=== PATIENT | female | born 1960 | race Hispanic/Latino ===

== ENCOUNTER → 2018-07-23 07:41 | Outpatient (CLI) | payer OTHER, SELFPAY ==
--- NOTE | 2018-07-23 | DI.MG.S_ITS ---
BILATERAL DIGITAL SCREENING MAMMOGRAM 3D/2D WITH CAD: 07/23/2018 CLINICAL: Routine screening. Comparison is made to exams dated: 06/01/2017 mammogram, 05/29/2016 mammogram, and 05/23/2015 mammogram - [facility]. The tissue of both breasts is heterogeneously dense. This may lower the sensitivity of mammography. Current study was also evaluated with a Computer Aided Detection (CAD) system. There are a grouped calcifications in the left breast at 2 o'clock middle depth. No other significant masses, calcifications, or other findings are seen in either breast. IMPRESSION: INCOMPLETE: NEEDS ADDITIONAL IMAGING EVALUATION The grouped calcifications in the left breast are indeterminate. Spot magnification views are recommended. This exam was interpreted at Station ID: [id number]. NOTE: For mammograms, a report in lay terms will be sent to the patient. Approximately 15% of breast malignancies will not be visualized mammographically. In the management of a palpable breast mass, a negative mammogram must not discourage biopsy of a clinically suspicious lesion. Electronically Signed By: Mirella enriquez/james:07/25/2018 11:24:02 letter sent: Additional Imaging Needed ACR BI-RADS Category 0: Incomplete 3340F
== END ==
PROVIDERS: PCP Family Medicine; Visit Provider Family Medicine
DX: Z12.31 Encounter for screening mammogram for malignant neoplasm of breast (principal)
CPT/HCPCS: 77063; 77067

== ENCOUNTER → 2018-08-22 10:22 | Outpatient (CLI) | payer OTHER, SELFPAY ==
--- NOTE | 2018-08-22 | DI.MG.S_ITS ---
UNILATERAL LEFT DIGITAL DIAGNOSTIC MAMMOGRAM 3D/2D WITH ADDITIONAL VIEWS: 08/22/2018 CLINICAL: Additional evaluation requested from prior study. Comparison is made to exams dated: 07/23/2018 mammogram, 06/09/2017 mammogram, and 06/01/2017 mammogram - [facility]. The tissue of left breast is heterogeneously dense. This may lower the sensitivity of mammography. There are a grouped calcifications in the left breast at 1 o'clock middle depth. These are seen in additional views. No other significant masses or calcifications are seen in the breast. IMPRESSION: SUSPICIOUS OF MALIGNANCY The grouped calcifications in the left breast are at an intermediate suspicion for malignancy. A stereotactic biopsy is recommended. This exam was interpreted at Station ID: [id number]. NOTE: For mammograms, a report in lay terms will be sent to the patient. Approximately 15% of breast malignancies will not be visualized mammographically. In the management of a palpable breast mass, a negative mammogram must not discourage biopsy of a clinically suspicious lesion. SUMMARY: This was discussed with the patient by the radiologist, Dr. Caruso at the time of the exam. Electronically Signed By: Mirella Rosales M.D. lk/:08/22/2018 10:54:23 copy to: Tish Terry letter sent: Biopsy Required ACR BI-RADS Category 4b: Suspicious abnormality - intermediate suspicion of malignancy 3344F
== END ==
PROVIDERS: PCP Family Medicine; Visit Provider Family Medicine
DX: R92.1 Mammographic calcification found on diagnostic imaging of breast (principal)
CPT/HCPCS: 77065; G0279

== ENCOUNTER → 2019-08-11 12:48 | Outpatient (CLI) | payer OTHER, SELFPAY ==
--- NOTE | 2019-08-11 | DI.MG.S_ITS ---
BILATERAL DIGITAL SCREENING MAMMOGRAM 3D/2D WITH CAD: 08/11/2019 CLINICAL: Routine screening. Family history of breast cancer. Comparison is made to exams dated: 07/23/2018 mammogram, 06/01/2017 mammogram, 05/29/2016 mammogram, 08/22/2018 mammogram - [facility], and 08/29/2018 specimen - [facility]. The tissue of both breasts is heterogeneously dense. This may lower the sensitivity of mammography. Current study was also evaluated with a Computer Aided Detection (CAD) system. There are benign post operative findings in both breasts. No significant masses, calcifications, or other findings are seen in either breast. There has been no significant interval change. IMPRESSION: There is no mammographic evidence of malignancy. A 1 year screening mammogram is recommended. This exam was interpreted at Station ID: [id number]. NOTE: For mammograms, a report in lay terms will be sent to the patient. Approximately 15% of breast malignancies will not be visualized mammographically. In the management of a palpable breast mass, a negative mammogram must not discourage biopsy of a clinically suspicious lesion. Electronically Signed By: Magan lyle/james:08/11/2019 14:35:36 copy to: Tish Terry letter sent: Normal Exam ACR BI-RADS Category 2: Benign Finding(s) 3342F
== END ==
PROVIDERS: PCP Family Medicine; Visit Provider Family Medicine
DX: Z12.31 Encounter for screening mammogram for malignant neoplasm of breast (principal); Z80.3 Family history of malignant neoplasm of breast
CPT/HCPCS: 77063; 77067

== ENCOUNTER → 2020-04-26 15:25 | Outpatient (CLI) | payer OTHER, SELFPAY ==
--- NOTE | 2020-04-26 15:27 | DI.RAD.S_ITS ---
PROCEDURE: XR SHOULDER LT MIN 2V INDICATIONS: Shoulder pain TECHNIQUE: Three views of the shoulder were acquired. COMPARISON: None. FINDINGS: Bones: No fractures or dislocations. No suspicious bony lesions. Visualized ribs appear intact. Soft tissues: No suspicious soft tissue calcifications. IMPRESSION: No acute finding. Dictated by: Lukasz Paulino M.D. on 04/26/2020 at 15:54 Approved by: Lukasz Paulino M.D. on 04/26/2020 at 15:54
== END ==
PROVIDERS: PCP Family Medicine; Referring Provider Nurse Practitioner; Visit Provider Nurse Practitioner
DX: M25.512 Pain in left shoulder (principal)
CPT/HCPCS: 73030

== ENCOUNTER → 2020-07-16 09:26 | Outpatient (CLI) | payer OTHER, SELFPAY ==
[2020-07-17 14:21] LABS: COVID19 Sendout Not Detected (Not Detect)
== END ==
PROVIDERS: PCP Family Medicine; Visit Provider Physician Assistant
DX: Z11.59 Encounter for screening for other viral diseases (principal)
CPT/HCPCS: 87635

== ENCOUNTER 2020-07-19 13:54 | Day surgery (SDC) | payer OTHER, SELFPAY ==
[2020-07-19] VITALS (7 sets, daily range): BP systolic 119–142; BP diastolic 64–88; PULSE 51–76; RESP 11–22; TEMP 36–36.5; O2SAT 99–100; BMI 31.9
--- NOTE | 2020-07-19 | PATH_ITS ---
[facility] Accession Number: [id number] . 01 Material submitted: . sigmoid colon - SIGMOID POLYP 2MM . 02 Diagnosis: Sigmoid Colon, Polyp 2 mm, Biopsy: Tubular adenoma. MRV 07/23/2020 1244 Local . 02 Electronically signed: . Madisyn Begum MD, Pathologist NPI- [id number] . 01 Gross description: . SIGMOID POLYP 2MM: Received in formalin is 1 fragment(s) of walker, soft tissue measuring 0.3 x 0.3 x 0.3 cm submitted entirely in 1 cassette(s) /QBJ 07/20/2020 0804 Local . 02 Pathologist provided ICD-10: D12.5 . 02 CPT . 309997 Specimen Comment: A duplicate report has been generated due to demographic updates. Performed at: 01 [facility] [address] [id number] MD Sb Dominguez MD Phone: [phone] Performed at: 02 [facility] [address] [place] [id number] MD Madisyn Begum MD Phone: [phone]
--- NOTE | 2020-07-19 11:11 | PM.HP.1 ---
History of Present Illness History of Present Illness Date Patient Seen: 07/19/20 Chief complaint: [facility] Narrative: 60 Years Old Female seen today for consideration of a screening colonoscopy. Has had 3 previous colonoscopies. Cannot remember the date of the first colonoscopy but she did have colon polyps reportedly, results unavailable at time of dictation. The last 2 were in 2011 and 2015. The 2012 colonoscopy was indicated for a strong family history of colon cancer and history of polyps, normal. The 2016 colonoscopy was indicated for the same; also normal but did show some diverticular change on the left side as well tortuosity. There have been no lower GI symptoms suggesting disease such as change in bowel habits, bleeding, abdominal pain or anemia. Strong family history of colon cancer in her mother, 2 maternal aunts, and brother. Per patient, genetic testing has been refused by those family members. Overall health issues have been stable, including no major cardiac events for at least 6 weeks. Current Medications: 1) Atorvastatin Calcium 40 Mg Oral Tablet (Atorvastatin Calcium) .... Take 2 tablet by mouth daily for cholesterol control. 2) Fluoxetine Hcl 20 Mg Oral Capsule (Fluoxetine Hcl) .... Take 2 capsule by mouth once a day 3) Wellbutrin Sr 100 Mg Oral Tablet Extended Release 12 Hour (Bupropion Hcl) .... Take one by mouth twice a day 4) Estradiol 1 Mg Oral Tablet (Estradiol) .... Take one tablet by mouth every day for hormone replacement. 5) Acyclovir 400 Mg Oral Tablet (Acyclovir) .... Take one by mouth twice a day 6) Flonase 50 Mcg/act Nasal Suspension (Fluticasone Propionate) .... Take one by mouth every day 7) Singulair 10 Mg Oral Tablet (Montelukast Sodium) .... Take one by mouth every day Allergies: 1) Ceftin (Critical) 2) Penicillin (Critical) 3) Sulfa (Critical) 4) Tetracycline (Critical) 5) Macrodantin (Critical) 6) Flu Vaccine (Critical) 7) * Histamine Releasing Drugs (Critical) 8) Asa (Moderate) Past Medical History: Abnormal Pap - severe dysplasia (1987) MAUREEN I + II History of colon polyps Diverticulosis of colon Mammographic calcification of breast Large breasts OBESITY (BMI <40) PAIN, LOW BACK W/SCIATICA Breast asymmetry URINARY INCONTINENCE, STRESS, FEMALE DEPRESSION, MAJOR, RECURRENT HYPERLIPIDEMIA RAYNAUD'S SYNDROME ARTHRITIS HERPES SIMPLEX, ANY SITE Past Surgical History: Hysterectomy (1987) - right ovary removed Abdmoinal wall repair (08/1999) Cholecystectomy (1997) with susequent diarrhea 12/24/15 Dr. Halima Connors retro pubic sling for stress incontinence Colonoscopy x3, diverticulosis Bilateral breast reduction Family History: Father: Mother: colon cancerBreast Cancer, Heart Disease, Depression, Hyperlipidemia, Osteoporosis Siblings: Alcohol, Depression Brother: colon cancer Maternal aunts: colon cancer Social History: Reviewed history from 08/30/2019 and no changes required: Marital Status: - [employer] (1954) - [employer] Occupation: [employer] Personality Education: Associates degree Meds Home Medications and Allergies Home Medications Medication Instructions Recorded Confirmed Type acyclovir 80 mg PO BID 04/26/20 07/19/20 History bupropion HCl 150 mg PO BID 04/26/20 07/19/20 History estradiol PO 04/26/20 04/26/20 History fluoxetine 40 mg capsule 40 mg PO DAILY 04/26/20 07/19/20 History montelukast 10 mg tablet 10 mg PO DAILY 04/26/20 07/19/20 History rosuvastatin 20 mg tablet 20 mg PO DAILY 04/26/20 07/19/20 History Allergies Allergy/AdvReac Type Severity Reaction Status Date / Time Influenza Virus Vaccines Allergy Intermediate Verified 07/19/20 14:43 Histamine H2 Inhibitors Allergy Anaphylaxis Verified 07/19/20 14:26 nitrofurantoin Allergy rash Verified 07/19/20 14:26 [From Macrodantin] Penicillins Allergy Verified 07/19/20 14:26 Sulfa (Sulfonamide Allergy rash Verified 07/19/20 14:26 Antibiotics) Tetracyclines Allergy Rash Verified 07/19/20 14:26 aspirin AdvReac Vomiting Verified 07/19/20 14:26 Review of Systems Review of Systems ROS: Yes All systems reviewed with the patient and are negative except as otherwise documented Exam Narrative Exam Narrative: GENERAL: Alert and oriented, appearing stated age and in no acute distress. HEENT: Head normocephalic/atraumatic. Pupils equal, round, and reactive to light and accomodation. Extraocular muscles intact. Tympanic membranes clear. Nasal mucosa moist, septum midline. Oral mucosa moist, no lesions. Neck soft and supple, no lymphadenopathy. LUNGS: Clear to ausculation bilaterally, no wheezes, rhonchi or rales. CV: Normal S1 and S2 with regular rate and rhythm, no audible murmurs, rubs or gallops. ABDOMEN: Soft, non-tender, non-distended, no organomegaly. Positive bowel sounds. EXTREMITIES: No clubbing, cyanosis, or edema. NEURO: Cranial nerves II through XII grossly intact, no focal deficits. PSYCH: Alert and oriented x 3. SKIN: No concerning lesions. Assessment & Plan Assessment & Plan narrative: 1. Family history of colon cancer 2. History of colon polyps 3. Diverticulosis of Colon 4. Screening for colon cancer Plan for colonoscopy. The nature and character of the procedure as well as anticipated results were discussed. The possibility of not completing the procedure was also discussed. Possible complications including aspiration pneumonia, bleeding, perforation and reaction to medications either for sedation or preparation and missed lesions were discussed. Questions were answered and proceeding to the colonoscopy was elected. Informed consent signed. I sincerely appreciate the referral allowing me to participate in this patient's care. Please contact me with any questions or concerns.
--- NOTE | 2020-07-19 11:13 | PM.OP.ENDO ---
Operative Date/Time/Diagnoses Date of procedure: 07/19/20 Procedure Notes SCOAP/Timeout: 3:06 p.m. Procedure in detail: ENDOSCOPIST: Shana Osorio MD Sedation RN: David Newton RN Sedation start time: 3:07 p.m. Sedation end time: 3:30 p.m. PROCEDURE: Colonoscopy with cold biopsy INDICATIONS: 1. Family history of colon cancer 2. History of colon polyps 3. Diverticulosis of colon 4. Screening for colon cancer MEDICATION: Levsin 0.125 mg sublingual, incremental doses of Versed and fentanyl until appropriate level sedation achieved. ASA CLASS: 2 CECAL WITHDRAWAL TIME: 10 minutes COMPLICATIONS: None. EXTENT OF PROCEDURE: Cecum. QUALITY OF PREP: Good with portions of liquid stool. PROCEDURE: Prior to insertion of the colonoscope, a digital rectal examination was accomplished with circumferential palpation of the distal rectal mucosa without significant findings being noted. The high-definition pediatric colonoscope was passed into the rectum in the usual fashion and advanced over to the cecum without difficulty. The ileocecal valve, appendiceal stoma, and medial wall all could be inspected and no abnormalities were seen. ASCENDING COLON: As the colonoscope was withdrawn, care was taken to expose and inspect the haustral folds and no abnormalities were seen. HEPATIC FLEXURE: Normal, no polyps, diverticula or other abnormalities. TRANSVERSE COLON: Normal, no polyps, diverticula or other abnormalities. DESCENDING COLON: Normal, no polyps, diverticula or other abnormalities. SIGMOID COLON: Minor diverticulosis, HGB 9 polyp was seen and removed with cold biopsy forceps. Otherwise, no abnormalities. RECTUM: Normal. J maneuver was produced. There was no significant perianal disease. The J maneuver was broken. The remainder of the rectum was inspected and there was no external hemorrhoid disease. The scope was withdrawn. IMPRESSION: 1. Sigmoid polyp x1, 2 mm, removed with cold biopsy forceps 2. Sigmoid diverticulosis, mild PLAN: 1. Follow-up in clinic status post pathology results. The possibility of a missed lesion including a malignancy has been discussed with the patient previously. Potential alarm symptoms have been discussed and should be reported immediately.
[2020-07-19] MEDS: HYOSCYAMINE 0.125 MG TABLET PO (14:34)
[2020-07-19] MEDS: LACTATED RINGERS 1,000 ML 200 ML IV (14:35)
[2020-07-19] MEDS: MIDAZOLAM 5 MG/5 ML VIAL IV (15:10)
[2020-07-19] MEDS: fentaNYL 250 MCG/5 ML INJ IV (15:19)
== END 2020-07-19 16:24 | disposition home or self-care (01) ==
PROVIDERS: PCP Family Medicine; Referring Provider Family Medicine; Visit Provider Student in an Organized Health Care Education/Training Program
PROC: 0DJD8ZZ Inspection of Lower Intestinal Tract, Via Natural or Artificial Opening Endoscopic (ICD-10-PCS; CPT 45378; principal; 2020-07-19 15:15)
DX: Z12.11 Encounter for screening for malignant neoplasm of colon (principal); Z86.010 Personal history of colon polyps; Z80.0 Family history of malignant neoplasm of digestive organs; K57.30 Diverticulosis of large intestine without perforation or abscess without bleeding; D12.5 Benign neoplasm of sigmoid colon
CPT/HCPCS: 45380; J2250; J3010

== ENCOUNTER → 2020-08-16 16:40 | Outpatient (CLI) | payer OTHER, SELFPAY ==
--- NOTE | 2020-08-16 16:42 | DI.MG.S_ITS ---
BILATERAL DIGITAL SCREENING MAMMOGRAM 3D/2D WITH CAD: 08/16/2020 CLINICAL: Routine screening. Family history of breast cancer. Comparison is made to exams dated: 08/11/2019 mammogram, 07/23/2018 mammogram, and 06/01/2017 mammogram - [facility]. The tissue of both breasts is heterogeneously dense. This may lower the sensitivity of mammography. Current study was also evaluated with a Computer Aided Detection (CAD) system. There are benign post operative findings in both breasts. No significant masses, calcifications, or other findings are seen in either breast. There has been no significant interval change. IMPRESSION: BENIGN There is no mammographic evidence of malignancy. A 1 year screening mammogram is recommended. This exam was interpreted at Station ID: [id number]. NOTE: For mammograms, a report in lay terms will be sent to the patient. Approximately 15% of breast malignancies will not be visualized mammographically. In the management of a palpable breast mass, a negative mammogram must not discourage biopsy of a clinically suspicious lesion. Electronically Signed By: Alex shen/james:08/18/2020 11:16:50 copy to: Tish Terry letter sent: Normal Exam ACR BI-RADS Category 2: Benign Finding(s) 3342F
== END ==
PROVIDERS: PCP Family Medicine; Referring Provider Family Medicine; Visit Provider Family Medicine
DX: Z12.31 Encounter for screening mammogram for malignant neoplasm of breast (principal); Z80.3 Family history of malignant neoplasm of breast
CPT/HCPCS: 77063; 77067

== ENCOUNTER → 2024-11-06 16:17 | Outpatient (CLI) | payer OTHER, SELFPAY ==
--- NOTE | 2024-11-06 16:20 | DI.MG.S_ITS ---
BILATERAL DIGITAL SCREENING MAMMOGRAM 3D/2D WITH CAD: 11/06/2024 CLINICAL: Routine screening. Family history of breast cancer. Comparison is made to exams dated: 11/10/2023 mammogram, 09/25/2022 mammogram - out side, and 08/16/2020 mammogram - [facility]. There are scattered areas of fibroglandular density (category b / 25%-50% glandular tissue). Current study was also evaluated with a Computer Aided Detection (CAD) system. There are benign post operative findings in both breasts. No significant masses, calcifications, or other findings are seen in either breast. There has been no significant interval change. IMPRESSION: BENIGN There is no mammographic evidence of malignancy. A 1 year screening mammogram is recommended. Based on the Tyrer Cuzick model (a risk assessment model) the patient's lifetime risk is 12.4% and her 10 year risk is 5.5%. According to the ACR, ACS, and NCCN guidelines, an annual breast MRI exam along with mammogram is recommended if the patient's lifetime risk is 20% or greater. This exam was interpreted at Station ID: [id number]. NOTE: For mammograms, a report in lay terms will be sent to the patient. Approximately 15% of breast malignancies will not be visualized mammographically. In the management of a palpable breast mass, a negative mammogram must not discourage biopsy of a clinically suspicious lesion. Electronically Signed By: Pepe daniels/james:11/07/2024 12:40:31 letter sent: Normal Exam ACR BI-RADS Category 2: Benign
== END ==
LOC: MAMMO 16:18
PROVIDERS: PCP Family Medicine; Referring Provider Family Medicine; Visit Provider Family Medicine
DX: Z12.31 Encounter for screening mammogram for malignant neoplasm of breast (principal); Z80.3 Family history of malignant neoplasm of breast
CPT/HCPCS: 77063; 77067

== ENCOUNTER → 2024-12-24 09:26 | Outpatient (CLI) | payer OTHER, SELFPAY ==
--- NOTE | 2024-12-24 10:34 | DI.MRI.S_ITS ---
PROCEDURE: MR ANKLE RT WO CON INDICATIONS: RIGHT ANKLE AND MIDFOOT ARTHRITIS PAIN TECHNIQUE: Noncontrast sagittal T1 spin echo and T2 fast spin echo with fat saturation, axial proton density fast spin echo and T2 fast spin echo with fat saturation, coronal T1 spin echo and T2 fast spin echo with fat saturation through the ankle/hindfoot. COMPARISON: [facility], CR, XR FOOT 3 VIEWS WEIGHT BEARING RIGHT, 12/21/2024, 11:48. FINDINGS: Image quality: Excellent. Bones: Mild marrow edema is present at the talar head and neck (6/17). Subchondral cyst formation is present at the anterior aspect of the navicular along the navicular-cuneiform articulation (6/17). The anterior process of the calcaneus and lateral process of the talus are intact. There is a 0.3 x 0.3 x 0.8 cm lateral talar dome osteochondral defect with mild adjacent marrow edema, but without any fluid cleft or free-floating fragment (5/12; 8/24). Joints: There is a moderate tibiotalar joint effusion with synovial proliferation (6/15) and intermediate signal fluid. 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 Sinus tarsi: There is partial loss of the fat signal at the sinus tarsi. Syndesmotic ligaments: The anterior and posterior inferior syndesmotic ligaments are normal. Lateral collateral ligament: There is low signal thickening of the lateral collateral ligament complex. Deltoid ligament: The visualized components of the deltoid ligament, that being the posterior tibiotalar and tibiospring ligaments, are thickened with low signal. Calcaneonavicular spring ligament: The superomedial component of the calcaneonavicular spring ligament is grossly intact. Tendons: There is a small amount of circumferential fluid in the flexor hallucis longus tendon sheath at the level of the plantar arch (6/18; 4/30). There is a split tear morphology of the peroneus brevis with distal reconstitution. A small amount of fluid is also present in the peroneal tendon sheath at the retro malleolar groove. The Achilles tendon is normal. The extensor, flexor and peroneal tendons are otherwise normal. The peroneal tendons are appropriately situated within the retromalleolar groove, and the superficial peroneal retinaculum is intact. Plantar aponeurosis: There is no abnormal thickening of, abnormal intrasubstance signal involving, or perifascial edema about the plantar aponeurosis. Plantar musculature: There are no findings of denervation involving the plantar muscles of the foot. Mild diffuse atrophy is present. Nerves: The visualized nerves are unremarkable. Other: Mild dorsal soft tissue edema is present along the lateral portions of the foot (04/24-). IMPRESSION: 1. Mild flexor hallucis longus tenosynovitis at the level of the plantar arch. 2. Peroneus brevis split tear with distal reconstitution and mild peroneal tenosynovitis. 3. Lateral talar dome 0.8 cm osteochondral defect without MR evidence of instability. 4. Moderate tibiotalar joint effusion with synovial proliferation versus possible crystalline arthropathy. Consider gout versus pseudogout. 5. Partial loss of the fat signal at the sinus tarsi, which can be seen with sinus tarsi syndrome. 6. Chronic sprains of the lateral collateral and deltoid ligament complexes. 7. 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 Dictated by: Chance Starkey M.D. on 12/25/2024 at 13:40 Approved by: Chance Starkey M.D. on 12/25/2024 at 13:54
== END ==
PROVIDERS: PCP Family Medicine; Referring Provider Orthopaedic Surgery Foot and Ankle Surgery; Visit Provider Orthopaedic Surgery Foot and Ankle Surgery
DX: M19.071 Primary osteoarthritis, right ankle and foot (principal); S96.811A Strain of other specified muscles and tendons at ankle and foot level, right foot, initial encounter; S93.421A Sprain of deltoid ligament of right ankle, initial encounter; S93.491A Sprain of other ligament of right ankle, initial encounter; M25.471 Effusion, right ankle; M65.971 Unspecified synovitis and tenosynovitis, right ankle and foot
CPT/HCPCS: 73721